=== PATIENT | male | born 1985 | race Caucasian/White ===

== ENCOUNTER 2020-05-20 09:00 | Emergency (ER) | payer MEDICAID ==
[~2020-05-20] VITALS: Ht 170.2 cm; Wt 81.6 kg
[2020-05-20 09:02] VITALS: BP 109/72
--- NOTE | 2020-05-20 09:30 | NUR ---
Pt biba c/o lt ankle pain x 1 day, denies trauma/injury . Pt aox4 , afibrile , ambulatory with assistance , with some limitation of rom left ankle. medhx: seizures, asthma, HIV
--- NOTE | 2020-05-20 09:30 | NUR ---
X-Ray at bedside.
--- NOTE | 2020-05-20 09:30 | NUR ---
xray at bedside.
--- NOTE | 2020-05-20 09:50 | NUR ---
applied jazmin wrap to left ankle without any issues
--- NOTE | 2020-05-20 09:55 | NUR ---
dr balbuena at bedside evaluating pt.
[2020-05-20 10:01] VITALS: BP 109/72
--- NOTE | 2020-05-20 10:03 | NUR ---
Patient discharged with v/s stable. Written and verbal after care instructions given and explained regarding ankle pain. Patient alert, oriented and verbalized understanding of instructions. Ambulatory with steady gait. All questions addressed prior to discharge. ID band removed. Patient advised to follow up with PMD. Rx of tylenol given. Patient educated on indication of medication including possible reaction and side effects. Opportunity to ask questions provided and answered.
== END 2020-05-20 10:03 | disposition home or self-care (01) ==
LOC: MED 09:00
DX: M25.572 Pain in left ankle and joints of left foot (principal); J45.909 Unspecified asthma, uncomplicated; Z88.1 Allergy status to other antibiotic agents; Z88.5 Allergy status to narcotic agent; Z88.8 Allergy status to other drugs, medicaments and biological substances; W19.XXXA Unspecified fall, initial encounter; Y93.89 Activity, other specified; Y92.89 Other specified places as the place of occurrence of the external cause; Y99.8 Other external cause status
CPT/HCPCS: 73610; 99283

== ENCOUNTER 2021-08-04 18:19 | Emergency (ER) | payer MEDICAID ==
[~2021-08-04] VITALS: Ht 172.7 cm; Wt 81.6 kg
[2021-08-04 18:36] VITALS: BP 135/98
--- NOTE | 2021-08-04 18:40 | NUR ---
PT TO AWAIT IN LOBBY
--- NOTE | 2021-08-04 19:36 | NUR ---
[facility] AMBULATED UNASSISTED TO ER BED 01 WITH EVEN AND STEADY GAIT
--- NOTE | 2021-08-04 19:46 | NUR ---
PT SEEN LEAVING FACILITY. ASKED PATIENT IF HE WOULD LIKE TO BE SEEN PRIOR TO LEAVING AND PT STATED HE WOULD NOT. PATIENT LEFT WITHOUT BEING SEEN BY DR. DWYER. NO FURTHER CARE PROVIDED FOR PATIENT.
== END 2021-08-04 19:46 | disposition left against medical advice (07) ==
LOC: MED 18:19
DX: M25.512 Pain in left shoulder (principal); Z53.21 Procedure and treatment not carried out due to patient leaving prior to being seen by health care provider